=== PATIENT | male | born 2000 | race Caucasian/White ===

== ENCOUNTER 2021-11-24 20:18 | Emergency (ER) | payer MEDICAID ==
[~2021-11-24] VITALS: Ht 175.3 cm; Wt 83.9 kg
[2021-11-24 21:54] VITALS: BP 138/79
--- NOTE | 2021-11-24 21:54 | NUR ---
PT BIBSELF C/O "ANXIETY" H/A, DIZZINESS, SHAKY. PT A/OX4. TOLERATING R/A WELL WITH NO SOB.
--- NOTE | 2021-11-24 22:05 | NUR ---
DR. DIETZ AT PT'S BEDSIDE
== END 2021-11-24 22:19 | disposition home or self-care (01) ==
LOC: ER 20:26
DX: F41.9 Anxiety disorder, unspecified (principal); Z60.2 Problems related to living alone